=== PATIENT | female | born 1980 | race Caucasian/White ===

== ENCOUNTER 2022-12-21 11:46 | Emergency (ER) | payer BC, OTHER ==
[~2022-12-21] VITALS: Ht 167.7 cm; Wt 83.2 kg
[2022-12-21 11:49] VITALS: BP 150/102
--- NOTE | 2022-12-21 12:03 | ED EENT ---
History of Present Illness General Chief Complaint: Facial Problems Stated Complaint: FACIAL SWELLING Source: patient Exam Limitations: no limitations History of Present Illness Date Seen by Provider: Dec 21, 2022 Time Seen by Provider: 11:50 Initial Comments 42-year-old female presenting for right eye redness, itchiness, pain for the past several days. Woke up this morning and noticed little bit of swelling in her face as well and that is why she presented to the ER. Does not believe she has been sick recently, no congestion, cough, sore throat, fever. Has tried some Benadryl and allergy eyedrops which did not change too much her symptoms. Denies any vision changes or pain with eye movement. Allergies and Home Medications Allergies Coded Allergies: calamine (Verified Allergy, Unknown, 12/21/22) Patient Home Medication List Home Medication List Reviewed: Yes Review of Systems Review of Systems Constitutional: No fever Eyes: See HPI Ears: No Symptoms Reported Nose: no symptoms reported Mouth: no symptoms reported Throat: pain (Mild pain with swelling); denies discharge, denies neck stiffn ess, denies hoarse, denies aphonia, denies muffled, denies difficulty with fluids, denies previous injury Respiratory: no symptoms reported Cardiovascular: no symptoms reported Musculoskeletal: no symptoms reported Skin: no symptoms reported Neurological: No Symptoms Reported Hematologic/Lymphatic: No Symptoms Reported Immunological/Allergic: no symptoms reported All Other Systems Reviewed Negative Unless Noted: Yes Past Tndzqir-Pihmpu-Ndjxsk Hx Patient Social History Tobacco Use?: Yes Past Medical History Surgeries: Yes Tubal Ligation Physical Exam Height, Weight, BMI Height: '" Weight: lbs. oz. kg; BMI Method: General Appearance: WD/WN, no apparent distress Eyes: right eye conjunctival inflammation, right eye other (Some lid edema on the right); left eye normal inspection; bilateral eye PERRL, bilateral eye EOMI Ears: bilateral ear auricle normal, bilateral ear canal normal, bilateral ear TM normal Nose: normal inspection Mouth/Throat: normal mouth inspection, pharynx normal Neck: non-tender, full range of motion, supple, normal inspection Cardiovascular: regular rate, rhythm, no edema, no murmur Respiratory: chest non-tender, lungs clear, normal breath sounds, no respiratory distress, no accessory muscle use Gastrointestinal: normal bowel sounds, non tender, soft Neurologic/Psychiatric: no motor/sensory deficits, alert, normal mood/affect Skin: normal color, warm/dry Progress/Results/Core Measures Progress Progress Note : Progress Note 42-year-old female presenting for itchy right red eye with now with some swelling in her face. ABCs were intact and vitals were stable on presentation. Physical exam with conjunctival erythema and injection on the right with what appears to be some cobblestoning consistent with allergic versus viral infection. She does have some lid edema as well. No proptosis, normal e xtraocular movements without pain, normal visual acuity. I do not appreciate any significant swelling in her face. She has no trismus, normal voice, normal swallowing, no red flags in regards to this. She does not wear contacts. I discussed with the patient we can treat this as if it is bacterial with erythromycin ointment. I discussed given there is some swelling in her face that she is subjectively feeling as well as some pain with swallowing, we can treat this like an early infection with amoxicillin. I believe she is otherwise stable for discharge with outpatient follow-up. She was sent home with strict return precautions. Departure Impression Primary Impression: Conjunctivitis Qualified Codes: B30.9 - Viral conjunctivitis, unspecified Additional Impression: Facial swelling Disposition: HOME, SELF-CARE Condition: Stable Departure-Patient Inst. Decision time for Depature: 12:02 Referrals: [facility] (PCP) Primary Care Physician [facility]/[place] (Family) Primary Care Physician Patient Instructions: Conjunctivitis ([facility]) ED Add. Discharge Instructions: You will be on erythromycin ointment in your right eye for the next week. You will also be on an antibiotic as well in case this is an infection in the skin in your face. If things worsen, swelling gets to the point to where you are having difficulty breathing, cannot swallow, your voice is changing, or any other concerns then I would want you to be evaluated by As soon as possible. Otherwise take [id number] Zyrtec for allergies. Scripts Amoxicillin (Amoxicillin) 500 Mg Capsule 500 MG PO TID for 10 Days, #30 CAP 0 Refills Prov: BARTOLOME MARAVILLA MD 12/21/22 Erythromycin Base (Erythromycin Opthalmic Ointment) 5 Mg/Gram (0.5 %) Oint...g. 0 OP Q12H for 7 Days, #1 EA 1/ inch Prov: BARTOLOME MARAVILLA MD 12/21/22 Work/School Note: Work Release Form Date Seen in the Emergency Department: Dec 21, 2022 Return to Work: Dec 21, 2022 Restrictions: No Restrictions BARTOLOME MARAVILLA MD Dec 21, 2022 12:03
[2022-12-21] MEDS ORDERED: ERYT1OIN6 OP (12:04)
[2022-12-21] MEDS ORDERED: AMOX500C2 PO (12:04)
== END 2022-12-21 12:06 | disposition home or self-care (01) ==
LOC: ER FS 11:49
DX: H10.9 Unspecified conjunctivitis (principal); Z28.310 Unvaccinated for COVID-19
CPT/HCPCS: 99283